=== PATIENT | male | born 1960 | race Two or more races ===

== ENCOUNTER 2024-09-24 18:34 | Emergency (ER) | payer MEDICARE ==
[~2024-09-24] VITALS: Ht 180.3 cm; Wt 93.0 kg
[2024-09-24 19:29] LABS: BASOPHILS # (AUTO) 0.1 K/uL (0.0-0.2); BASOPHILS % (AUTO) 0.6 % (0.0-2.0); EOSINOPHILS # (AUTO) 0.2 K/uL (0.0-0.7); EOSINOPHILS % (AUTO) 1.9 % (0.0-6.0); HEMATOCRIT 40 % (39-51); HEMOGLOBIN 13.4 g/dL (13.5-17.5); LYMPHOCYTES # (AUTO) 1.3 K/uL (0.8-4.8); MEAN CORPUSCULAR HEMOGLOBIN 30 PG (26.0-33.0); MEAN CORPUSCULAR HGB CONC 33 g/dl (31.0-36.0); MEAN CORPUSCULAR VOLUME 91 fL (80-96); MONOCYTES # (AUTO) 0.5 K/uL (0.1-1.30); MONOCYTES % (AUTO) 4.4 % (2.0-12.0); NEUTROPHILS # (AUTO) 8.5 K/uL (1.8-8.9); NEUTROPHILS % (AUTO) 81.1 % (43.0-81.0); PLATELET COUNT (AUTO) 203 K/uL (150-450); RED BLOOD CELL COUNT(AUTO) 4.45 MIL/uL (4.5-6.0); RED CELL DISTRIBUTION WIDTH 14.5 % (11.5-15.0); WHITE BLOOD COUNT (AUTO) 10.5 K/uL (4.3-11.0)
[2024-09-24 19:49] LABS: CALCIUM, SERUM 9.3 mg/dL (8.5-10.1); CREATININE 1.2 mg/dL (0.6-1.3); POTASSIUM 3.3 mmol/L (3.5-5.1)
[2024-09-24] MEDS ORDERED: ACETAMINOPHEN ES 500 MG TABLET ONE (19:53)
[2024-09-24] MEDS ORDERED: KETOROLAC TROMETHAMINE 15 MG/ML VIAL ONE (19:53)
[2024-09-24] MEDS: IV NS 0.9% 1,000 ML BAG IV ONE (19:58)
[2024-09-24] MEDS: ACETAMINOPHEN ES 500 MG TABLET PO ONE (19:58)
[2024-09-24] MEDS: KETOROLAC TROMETHAMINE 15 MG/ML VIAL IV ONE (19:58)
[2024-09-24] MEDS ORDERED: MECLIZINE HCL 25 MG TABLET ONE (20:38)
[2024-09-24] MEDS: MECLIZINE HCL 12.5 MG TABLET PO ONE (20:39)
[2024-09-24] MEDS ORDERED: LABETALOL 20 MG/4 ML VIAL ONE (21:09)
[2024-09-24] MEDS: LABETALOL HCL IV 100MG VIAL IV ONE ×2 (21:18→21:50)
[2024-09-24] MEDS ORDERED: LABETALOL HCL (100MG) 100 MG TABLET ONE (21:47)
[2024-09-24] MEDS ORDERED: LABE100T5 PO (21:49)
[2024-09-24] MEDS: LABETALOL HCL (100MG) 100 MG TABLET PO ONE (21:50)
[2024-09-24] MEDS ORDERED: AMLO-213 PO (21:53)
[2024-09-24 22:20] VITALS: BP 186/100; TEMP 98.1; O2SAT 98
== END 2024-09-24 22:20 | disposition home or self-care (01) ==
LOC: ER 18:38
DX: I10 Essential (primary) hypertension (principal); E78.5 Hyperlipidemia, unspecified; E87.6 Hypokalemia; R00.2 Palpitations; R11.2 Nausea with vomiting, unspecified; R42 Dizziness and giddiness; R51.9 Headache, unspecified
CPT/HCPCS: 99284; 96374; 96361; 96375; 93005; 96376; 85025; 80048; 36415; J1885; J8597; J7030; J3490